=== PATIENT | female | born 1980 | race Caucasian/White ===

== ENCOUNTER 2016-10-20 03:47 | Emergency (ER) | payer SELFPAY ==
[~2016-10-20] VITALS: Ht 162.6 cm; Wt 118.8 kg
[~2016-10-20 03:47] MED LIST: FER325 PO; PREN-39 PO; PROG200C3 VAG
[2016-10-20 03:52] VITALS: Ht 162.6 cm; Wt 118.8 kg
== END 2016-10-20 06:32 | disposition left against medical advice (07) ==
LOC: FTE 03:47
DX: Z53.21 Procedure and treatment not carried out due to patient leaving prior to being seen by health care provider (principal)